=== PATIENT | female | born 1990 | race Caucasian/White ===

== ENCOUNTER 2021-05-13 11:16 | Emergency (ER) | payer OTHER, SELFPAY ==
[2021-05-13] VITALS (7 sets, daily range): BP systolic 106–112; BP diastolic 67–81; PULSE 56–77; RESP 14–18; TEMP 36.9; O2SAT 97–100; BMI 32.8
--- NOTE | 2021-05-13 12:25 | DI.US.S_ITS ---
PROCEDURE: US PELVIC COMPLETE INDICATIONS: LEFT LOWER QUADRANT PAIN TECHNIQUE: Real-time scanning was performed of the pelvic organs, with image documentation. Additional endovaginal scanning was necessary due to incomplete visualization of the adnexal and endometrial structures by transabdominal scanning. COMPARISON: None. FINDINGS: Uterus: Uterus is anteverted and normal in size at 7.6 x 4.9 x 3.1 cm. The myometrium is homogeneous. The endometrium measures 4 mm combined thickness. IUD is in the expected position in the endometrial canal near the fundus. Ovaries: The right ovary measures 2.8 x 2.2 x 2.1 cm, with a calculated ovarian volume of 7 cc. Small right anechoic paraovarian cyst measuring 1.8 cm and 3 cm. The left ovary measures 3.3 x 2.3 x 2.1 cm, with a calculated ovarian volume of 8 cc. The ovaries have a normal sonographic appearance. Less than 12 follicles can be seen in each ovary. No adnexal masses are seen. Blood flow seen in both ovaries. Other: No pathologic free abdominal or pelvic fluid. IMPRESSION: 1. No ovarian torsion. 2. Small benign right paraovarian cyst measuring 3 cm and 1.8 cm. 3. IUD is in the expected location in the endometrial canal. We strive to produce accurate, complete, and clear reports of imaging services. To assist us in improving patient care, this report was composed using standard report templates and voice recognition software. Therefore, it may contain abnormal punctuation, insertions and/or omissions. Occasional wrong-word or sound-alike substitutions may occur. Though we review the report and make efforts to correct it, we do recommend that the report be read carefully in proper context to recognize any text inaccuracies. Dictated by: Nazario Stephen M.D. on 05/13/2021 at 13:09 Approved by: Nazario Stephen M.D. on 05/13/2021 at 13:13
[2021-05-13 13:05] LABS: RBC Urine 1-5/HPF (0-5/HPF); Squamous Epithelial Cell Urine 5-10 /HPF (0-5/HPF); Transitional Epi Cells Urine 1-5/HPF (0-5/HPF); WBC Urine 1-5/HPF (0-5/HPF)
[2021-05-13 13:06] LABS: Bacteria Urine Few (2-10); Culture Indicated Urine Cult Not Indicated
[2021-05-13 13:10] LABS: Add Manual Diff / Slide Review NO; Basophils Absolute Auto 0 /uL (0-100); Basophils Percent Auto 0.6 % (0-2); Eosinophils Absolute Auto 200 /uL (0-450); Eosinophils Percent Auto 3.7 % (2-4); Hematocrit 41.6 % (36-46); Hemoglobin 14.6 g/dL (12.0-16.0); Lymphocytes Absolute Auto 1700 /uL (1100-4500); Lymphocytes Percent Auto 25.2 % (25-40); Mean Corpuscular HGB Conc 35.2 % (30-36); Mean Corpuscular Hemoglobin 31.1 PG (26-34); Mean Corpuscular Volume 88.3 fL (80-100); Monocytes Absolute Auto 700 /uL (0-900); Monocytes Percent Auto 10.8 % (3-14); Neutrophils Absolute Auto 4000 /uL (1500-7000); Neutrophils Percent Auto 59.7 % (50-75); Platelet Count 219 X10^3/uL (150-400); Red Blood Cell Count 4.71 X10^6/uL (4.0-5.2); Red Cell Distribution Width 12.9 % (11.6-14.8); White Blood Cell Count 6.7 X10^3/uL (4.5-11.0)
[2021-05-13 13:22] LABS: Alanine Aminotransferase 14 IU/L (<35); Albumin 4.7 g/dL (3.5-5.0); Albumin Globulin Ratio 1.7 (1.0-2.8); Alkaline Phosphatase 51 U/L (38-126); Aspartate Aminotransferase 22 IU/L (14-36); BUN Creatinine Ratio 15.9 (6-22); Bilirubin Total 0.5 mg/dL (0.2-1.3); Blood Urea Nitrogen 14 mg/dL (7-17); Calcium 9.6 mg/dL (8.4-10.2); Carbon Dioxide 29 mmol/L (22-32); Chloride 105 mmol/L (98-107); Estimated Glomerular Filt Rate > 60.0 mL/min (>60); Globulin 2.7 g/dL (1.7-4.1); Glucose 81 mg/dL (70-100); HEMOLYSIS < 15 (0-50); Lipase 79 U/L (23-300); Potassium 3.9 mmol/L (3.4-5.1); Sodium 141 mmol/L (137-145); Total Protein 7.4 g/dL (6.3-8.2)
--- NOTE | 2021-05-13 13:49 | ED_ITS ---
HPI - Abdominal Pain <Zana Silva PA-C - Last Filed: 05/13/21 18:48> General Chief Complaint: Abdominal Pain Stated Complaint: pelvic pain 3 days Time Seen by Provider: 05/13/21 12:25 Source: patient Mode of arrival: Ambulatory History of Present Illness HPI narrative: Patient is a 30-year-old female presenting to the emergency department today for an evaluation of left-sided abdominal pain that began approximately 3 days ago. Patient states that she had been exercising and doing multiple core exercises p rior to the onset of her pain. She states that once the initial ?muscle soreness? ceased she noticed that the left side of her abdomen continued to be painful. Patient states that stretching and movement exacerbate the pain, noting that coughing causes the pain to become sharp and last for an hour or longer. Of note, patient states that her last normal menstrual period occurred 1 week ago and did not report any irregularities. Patient states that her pain has been gradually worsening. No fever, chills, chest pain, shortness of breath, cough, nausea, vomiting, diarrhea, dysuria, hematuria, back pain, vaginal discharge, or any other concerning symptoms reported. No further concerns were voiced at this time. Related Data Previous Rx's Medication Instructions Recorded methylprednisolone 4 mg tablets in 4 mg PO DAILY #21 ea 05/13/21 a dose pack (Medrol (Evan)) Allergies Allergy/AdvReac Type Severity Reaction Status Date / Time No Known Drug Allergies Allergy Verified 05/13/21 11:26 Review of Systems <Zana Silva PA-C - Last Filed: 05/13/21 18:48> Constitutional Constitutional: Denies chills, Denies fatigue, Denies fever(s), Denies frequent falls, Denies lethargy and Denies weakness Eyes Eyes: Denies loss of vision ENT Ears, Nose, Mouth, and Throat: Denies dizziness and Denies neck pain Cardiovascular Cardiovascular: Denies chest pain, Denies irregular heart rhythm, Denies lightheadedness, Denies palpitations, Denies dyspnea, Denies dyspnea on exertion and Denies orthopnea Respiratory Respiratory: Denies cough, Denies dyspnea, Denies dyspnea on exertion and Denies wheezing Gastrointestinal Gastrointestinal: Reports abdominal pain (Left lower quadrant), Denies change in bowel habits, Denies diarrhea, Denies nausea and Denies vomiting Genitourinary Genitourinary: Denies hematuria, Denies flank pain, Denies urinary incontinence and Denies urinary urgency Musculoskeletal Musculoskeletal: Denies back pain, Denies muscle weakness, Denies neck pain, Denies numbness and Denies tingling Integumentary/Breasts Skin/Breast: Denies pruritus, Denies erythema, Denies rash and Denies wounds Neurologic Neurologic: Denies behavioral changes, Denies confusion, Denies dizziness, Denies frequent falls, Denies loss of vision, Denies numbness, Denies tingling and Denies weakness Psychiatric Psychiatric: Denies behavioral changes and Denies confusion Endocrine Endocrine: Denies fatigue and Denies palpitations Allergic/Immunologic Allergic/Immunologic: Denies wheezing Patient History <Zana Silva PA-C - Last Filed: 05/13/21 18:48> Social History Smoking Status: Never smoker Smoking Status: Never smoker alcohol intake frequency: 0-2 drinks per day Substance Use Type: does not use Exam <Zana Silva PA-C - Last Filed: 05/13/21 18:48> Narrative Exam Narrative: GENERAL: 30 year old patient appears stated age. Well-developed patient, in no acute distress. HEAD: Atraumatic. Normocephalic. EYES: Pupils equal round and reactive. Extraocular motions intact. No scleral icterus. No injection or drainage. ENT: Nose without bleeding, purulent drainage. Throat without erythema, tonsillar hypertrophy or exudate. Airway patent. NECK: Trachea midline. Non tender CARDIOVASCULAR: Regular rate and rhythm without murmurs, gallops, or rubs. RESPIRATORY: Clear to auscultation. Breath sounds equal bilaterally. No wheezes, rales, or rhonchi. GASTROINTESTINAL: Abdomen soft, nondistended. Mild tenderness to palpation appreciated on the left lower quadrant of the abdomen. No masses, erythema, or areas of induration appreciated. EXTREMITIES: No edema or joint tenderness. BACK: Nontender without deformity or crepitance. No flank tenderness. NEURO: AOx3. SKIN: No rash or erythema of visible areas Initial Vital Signs Initial Vital Signs: Vital Signs Temperature 98.4 F 05/13/21 11:23 Pulse Rate 77 05/13/21 11:23 Respiratory Rate 14 05/13/21 11:23 Blood Pressure 109/67 05/13/21 11:23 Pulse Oximetry 99 05/13/21 11:23 <Thor Mancuso DO - Last Filed: 05/14/21 07:59> Initial Vital Signs Initial Vital Signs: Vital Signs Temperature 98.4 F 05/13/21 11:23 Pulse Rate 77 05/13/21 11:23 Respiratory Rate 14 05/13/21 11:23 Blood Pressure 109/67 05/13/21 11:23 Pulse Oximetry 99 05/13/21 11:23 Course <Zana Silva PA-C - Last Filed: 05/13/21 18:48> Course Course Narrative: CBC, CMP, lipase, urine dipstick, pelvic ultrasound ordered. Orders Ordered: ED Orders 05/13/21 12:25 US pelvic complete Stat Urine Microscopic Stat 05/13/21 13:00 CBC Auto Diff [Complete Blood Count AUTO DIFF] Stat CMP [Comprehensive Metabolic Panel] Stat Lipase Stat Vital Signs Vital signs: Vital Signs - 8 hr 05/13/21 11:23 05/13/21 13:13 05/13/21 13:14 Temperature 98.4 F Pulse Rate 77 56 L 65 Respiratory Rate 14 18 Blood Pressure 109/67 106/70 106/75 Pulse Oximetry 99 98 100 05/13/21 13:30 05/13/21 13:31 05/13/21 13:59 Temperature Pulse Rate 62 61 59 L Respiratory Rate 17 Blood Pressure 107/79 Pulse Oximetry 99 98 97 05/13/21 14:00 Temperature Pulse Rate Respiratory Rate Blood Pressure 112/81 Pulse Oximetry <Thor Mancuso DO - Last Filed: 05/14/21 07:59> Orders Ordered: ED Orders 05/13/21 12:25 US pelvic complete Stat Urine Microscopic Stat 05/13/21 13:00 CBC Auto Diff [Complete Blood Count AUTO DIFF] Stat CMP [Comprehensive Metabolic Panel] Stat Lipase Stat Vital Signs Vital signs: Vital Signs - 8 hr 05/13/21 11:23 05/13/21 13:13 05/13/21 13:14 Temperature 98.4 F Pulse Rate 77 56 L 65 Respiratory Rate 14 18 Blood Pressure 109/67 106/70 106/75 Pulse Oximetry 99 98 100 05/13/21 13:30 05/13/21 13:31 05/13/21 13:59 Temperature Pulse Rate 62 61 59 L Respiratory Rate 17 Blood Pressure 107/79 Pulse Oximetry 99 98 97 05/13/21 14:00 Temperature Pulse Rate Respiratory Rate Blood Pressure 112/81 Pulse Oximetry MDM - Abdominal Pain <Zana Silva PA-C - Last Filed: 05/13/21 18:48> Lab Data Result diagrams: 05/13/21 13:00 05/13/21 13:00 Labs: Lab Results 05/13/21 05/13/21 05/13/21 Range/Units 12:25 13:00 13:00 WBC 6.7 (4.5-11.0) X10^3/uL RBC 4.71 (4.0-5.2) X10^6/uL Hgb 14.6 (12.0-16.0) g/dL Hct 41.6 (36-46) % MCV 88.3 (80-100) fL MCH 31.1 (26-34) PG MCHC 35.2 (30-36) % RDW 12.9 (11.6-14.8) % Plt Count 219 (150-400) X10^3/uL Neut % (Auto) 59.7 (50-75) % Lymph % (Auto) 25.2 (25-40) % [place] % (Auto) 10.8 (3-14) % Eos % (Auto) 3.7 (2-4) % Baso % (Auto) 0.6 (0-2) % Neut # (Auto) 4000 (7874-3296) /uL Lymph # (Auto) 1700 (1029-5927) /uL [place] # (Auto) 700 (0-900) /uL Eos # (Auto) 200 (0-450) /uL Baso # (Auto) 0 (0-100) /uL Sodium 141 (137-145) mmol/L Potassium 3.9 (3.4-5.1) mmol/L Chloride 105 (98-107) mmol/L Carbon Dioxide 29 (22-32) mmol/L BUN 14 (7-17) mg/dL Creatinine 0.88 (0.52-1.04) mg/dL Estimated GFR > 60.0 (>60) mL/min BUN/Creatinine Ratio 15.9 (6-22) Glucose 81 (70-100) mg/dL Calcium 9.6 (8.4-10.2) mg/dL Total Bilirubin 0.5 (0.2-1.3) mg/dL AST 22 (14-36) IU/L ALT 14 (<35) IU/L Alkaline Phosphatase 51 (38-126) U/L Total Protein 7.4 (6.3-8.2) g/dL Albumin 4.7 (3.5-5.0) g/dL Globulin 2.7 (1.7-4.1) g/dL Albumin/Globulin Ratio 1.7 (1.0-2.8) Lipase 79 (23-300) U/L Urine RBC 1-5/hpf (0-5/HPF) Urine WBC 1-5/hpf (0-5/HPF) Ur Squamous Epith Cells 5-10 /hpf H (0-5/HPF) Ur Transition Epith Cell 1-5/hpf (0-5/HPF) Urine Bacteria Few (2-10) H (None) Ur Culture Indicated? Cult not indicated Point of care testing: Point of Care Testing Test Results Negative Urine Dip Bedside Urine Glucose Negative Bedside Urine Bilirubin - Negative Bedside Urine Ketone - Negative Urine Specific [place] 1.030 Bedside Urine Occult Blood +/- Bedside Urine pH 6.0 Bedside Urine Protein - Negative Bedside Urine Urobilinogen - Negative Bedside Urine Nitrite - Negative Bedside Urine Leukocytes +/- 15 Esterase Imaging Data US - Pelvic: Radiologist's Impression: PROCEDURE:? US PELVIC COMPLETE ? INDICATIONS:? LEFT LOWER QUADRANT PAIN ? TECHNIQUE:? Real-time scanning was performed of the pelvic organs, with image documen tation.? Additional endovaginal scanning was necessary due to incomplete visualization of the adnexal and endometrial structures by transabdominal scanning.? ? COMPARISON:? None. ? FINDINGS:? ?? Uterus:? Uterus is anteverted and normal in size at 7.6 x 4.9 x 3.1 cm. The myometrium is homogeneous. ? The endometrium measures 4 mm combined thickness.? IUD is in the expected position in the endometrial canal near the fundus. ? Ovaries:? The right ovary measures 2.8 x 2.2 x 2.1 cm, with a calculated ovarian volume of 7 cc.? Small right anechoic paraovarian cyst measuring 1.8 cm and 3 cm. The left ovary measures 3.3 x 2.3 x 2.1 cm, with a calculated ovarian volume of 8 cc. The ovaries have a normal sonographic appearance. Less than 12 follicles can be seen in each ovary.? No adnexal masses are seen.? Blood flow seen in both ovaries. ? Other:? No pathologic free abdominal or pelvic fluid. ? ? IMPRESSION:? 1. No ovarian torsion. ? 2. Small benign right paraovarian cyst measuring 3 cm and 1.8 cm. ? 3. IUD is in the expected location in the endometrial canal. ? ? We strive to produce accurate, complete, and clear reports of imaging services. To assist us in improving patient care, this report was composed using standard report templates and voice recognition software. Therefore, it may contain abnormal punctuation, insertions and/or omissions. Occasional wrong-word or sound-alike substitutions may occur. Though we review the report and make efforts to correct it, we do recommend that the report be read carefully in proper context to recognize any text inaccuracies. ? ? Dictated by: Nazario Stephen M.D. on 05/13/2021 at 13:09 ? ? Approved by: Nazario Stephen M.D. on 05/13/2021 at 13:13 ? MDM Narrative Medical decision making narrative: To consider pelvic inflammatory disease versus ovarian torsion versus ovarian c yst versus ruptured ovarian cyst versus hemorrhagic cyst versus ectopic versus diverticulitis. Overall physical examination, history, labs, and imaging are reassuring. Considering recent increased activity and core exercises the likelihood of muscle strain increases. Discussed with the patient the decision to not pursue further imaging with a CT, at this time patient understands plan and agrees that further imaging is not necessary. Discussed strict return precautions with patient prior to discharge. <Thor Mancuso, DO - Last Filed: 05/14/21 07:59> Lab Data Labs: Lab Results 05/13/21 05/13/21 05/13/21 Range/Units 12:25 13:00 13:00 WBC 6.7 (4.5-11.0) X10^3/uL RBC 4.71 (4.0-5.2) X10^6/uL Hgb 14.6 (12.0-16.0) g/dL Hct 41.6 (36-46) % MCV 88.3 (80-100) fL MCH 31.1 (26-34) PG MCHC 35.2 (30-36) % RDW 12.9 (11.6-14.8) % Plt Count 219 (150-400) X10^3/uL Neut % (Auto) 59.7 (50-75) % Lymph % (Auto) 25.2 (25-40) % [place] % (Auto) 10.8 (3-14) % Eos % (Auto) 3.7 (2-4) % Baso % (Auto) 0.6 (0-2) % Neut # (Auto) 4000 (9404-2110) /uL Lymph # (Auto) 1700 (8956-1163) /uL [place] # (Auto) 700 (0-900) /uL Eos # (Auto) 200 (0-450) /uL Baso # (Auto) 0 (0-100) /uL Sodium 141 (137-145) mmol/L Potassium 3.9 (3.4-5.1) mmol/L Chloride 105 (98-107) mmol/L Carbon Dioxide 29 (22-32) mmol/L BUN 14 (7-17) mg/dL Creatinine 0.88 (0.52-1.04) mg/dL Estimated GFR > 60.0 (>60) mL/min BUN/Creatinine Ratio 15.9 (6-22) Glucose 81 (70-100) mg/dL Calcium 9.6 (8.4-10.2) mg/dL Total Bilirubin 0.5 (0.2-1.3) mg/dL AST 22 (14-36) IU/L ALT 14 (<35) IU/L Alkaline Phosphatase 51 (38-126) U/L Total Protein 7.4 (6.3-8.2) g/dL Albumin 4.7 (3.5-5.0) g/dL Globulin 2.7 (1.7-4.1) g/dL Albumin/Globulin Ratio 1.7 (1.0-2.8) Lipase 79 (23-300) U/L Urine RBC 1-5/hpf (0-5/HPF) Urine WBC 1-5/hpf (0-5/HPF) Ur Squamous Epith Cells 5-10 /hpf H (0-5/HPF) Ur Transition Epith Cell 1-5/hpf (0-5/HPF) Urine Bacteria Few (2-10) H (None) Ur Culture Indicated? Cult not indicated Point of care testing: Point of Care Testing Test Results Negative Urine Dip Bedside Urine Glucose Negative Bedside Urine Bilirubin - Negative Bedside Urine Ketone - Negative Urine Specific [place] 1.030 Bedside Urine Occult Blood +/- Bedside Urine pH 6.0 Bedside Urine Protein - Negative Bedside Urine Urobilinogen - Negative Bedside Urine Nitrite - Negative Bedside Urine Leukocytes +/- 15 Esterase Discharge Plan Departure Patient Disposition: Home Clinical Impression: Abdominal pain, Muscle strain Instructions: DI for Abdominal Muscle Strain Activity Restrictions/Additional Instructions: *You have been diagnosed with abdominal pain, muscle strain *What to do: *Please continue to take your regular medications as directed. [X] New medication prescriptions sent to your pharmacy: [facility] - Medrol Evan [ ] New medication written as a paper prescription [ ] No new medications given *Please follow up with your primary care provider in 2-3 days, call for an appointment. Let them know you were seen in the Emergency Department and that we ask that you be seen in follow up. We will electronically transmit a record of today's note if your PCP is in our system *If you do not have a primary care provider please contact the [facility] Resource line at [phone]. They will ask some questions about your medical history and help get you set up with a doctor in the community. *Return to Emergency Department if you should have any new, worsening or concerning symptoms, such as fever greater than 101 F, shaking chills, worsening pain, persistent vomiting painful urination, blood in urine, or other bothersome symptoms. Prescriptions: New methylprednisolone [Medrol (Evan)] 4 mg tablets,dose pack 4 mg PO DAILY Qty: 21 0RF Referrals: Justin Huggins [Primary Care Provider] - <Thor Mancuso DO - Last Filed: 05/14/21 07:59> [facility] ED Attending Cosreneature Attestation: I was immediately available in the department for consultation. This documentation has been reviewed and I agree with assessment and plan. Supervised by Thor Mancuso DO
== END 2021-05-13 14:31 | disposition home or self-care (01) ==
PROVIDERS: Emergency Provider Physician Assistant
DX: R10.9 Unspecified abdominal pain (principal); T14.8XXA Other injury of unspecified body region, initial encounter; X58.XXXA Exposure to other specified factors, initial encounter
CPT/HCPCS: 76830; 76856; 80053; 81003; 81015; 81025; 83690; 85025; 99283

== ENCOUNTER → 2021-10-18 17:13 | Outpatient (CLI) | payer OTHER, SELFPAY ==
--- NOTE | 2021-10-18 | DI.MRI.S_ITS ---
PROCEDURE: MR ANKLE RT WO CON INDICATIONS: PAIN IN RT ANKLE AND JOINTS OF RIGHT FOOT TECHNIQUE: Noncontrast sagittal T1 spin echo and T2 fast spin echo with fat saturation, axial proton density fast spin echo and T2 fast spin echo with fat saturation, coronal T1 spin echo and T2 fast spin echo with fat saturation through the ankle/hindfoot. COMPARISON: None. FINDINGS: Image quality: Excellent. Bones and joints: No bone marrow contusions or fractures. No hindfoot coalitions. No osteochondral injuries of the talar dome. No pathologic joint effusions. Small plantar calcaneal enthesophyte is seen. Medial structures: The posterior tibialis is mildly thickened with small amount of fluid distending tendon sheath at the level of distal talus/talonavicular joint. suggestive of low-grade tenosynovitis . The flexor digitorum longus, and flexor hallucis longus tendons are intact. The posterior tibial neurovascular bundle appears normal within the tarsal tunnel, without extrinsic mass effect. The deep layer (anterior and posterior tibiotalar ligaments) and superficial layer (tibionavicular, tibiospring, and tibiocalcaneal ligaments) of the deltoid ligament appear normal. The spring ligament components (superomedial calcaneonavicular, medioplantar oblique calcaneonavicular, and inferoplantar longitudinal ligaments) are intact. Lateral structures: The anterior talofibular, calcaneofibular, and posterior talofibular ligaments appear attenuated with intrasubstance T2 hyperintense signal. More superiorly, the anterior and posterior tibiofibular ligaments appear intact, as is the intermalleolar ligament. The tibiofibular syndesmosis is normal in width at 2 mm or less. The peroneus longus and brevis tendons demonstrate normal location and morphology. Adjacent bony peroneal tubercle and retrotrochlear prominence are normal in size. The sinus tarsi demonstrates normal fatty signal, without edema, fibrosis, or cyst formation. Visualized sinus tarsi components (cervical ligament, interosseous talocalcaneal ligament, roots of the inferior extensor retinaculum) appear normal. The calcaneonavicular and calcaneocuboid components of the bifurcate ligament appear intact. The dorsal calcaneocuboid ligament appears intact. Anterior structures: The tibialis anterior, extensor hallucis longus, and extensor digitorum longus tendons appear intact. The dorsal talonavicular ligament appears intact. Posterior and plantar structures: Achilles tendon is intact. Medial and lateral bands of the plantar fascia are mildly thickened with surrounding edema at their insertions on plantar calcaneus. No abductor digiti quinti muscle atrophy to suggest Moe neuropathy. IMPRESSION: 1. Finding is suggestive of sprain/low to moderate grade intrasubstance partial-thickness tear involving anterior and posterior talofibular ligaments and calcaneofibular ligament. Medial ankle ligaments are intact. 2. Suggestion of low-grade tenosynovitis involving posterior tibialis tendon at the level of distal talus/talonavicular joint. 3. Small plantar calcaneal enthesophyte with mildly thickened plantar fascia at its calcaneal insertion suggestive of low-grade plantar fasciitis. 4. No marrow edema. No fracture or dislocation. No osteochondral injury of talar dome. Dictated by: Drew Hylton M.D. on 10/19/2021 at 10:30 Approved by: Drew Hylton M.D. on 10/19/2021 at 10:40
== END ==
PROVIDERS: Referring Provider Podiatrist; Visit Provider Podiatrist
DX: M25.371 Other instability, right ankle (principal); M25.571 Pain in right ankle and joints of right foot; M77.8 Other enthesopathies, not elsewhere classified
CPT/HCPCS: 73721